=== PATIENT | male | born 1960 | race Caucasian/White ===

== ENCOUNTER 2017-04-19 19:10 | Inpatient (IN) | payer BC ==
[~2017-04-19] VITALS: Ht 175.3 cm; Wt 62.1 kg
[2017-04-19] MEDS ORDERED: DIPH,PERTUSS(ACELL),TET VAC/PF 0.5 ML IM-VACC ONE ×2 (20:00→20:36)
[2017-04-19] MEDS ORDERED: SODIUM CHLORIDE 0.9% 1,000ML IVBOLUS ONE (20:00)
[2017-04-19 20:09] LABS: HEMATOCRIT 40.8 % (39.2-51.8); HEMOGLOBIN 14.1 g/dL (13.7-18.0); WHITE BLOOD COUNT 15.8 x10^3/uL (3.4-10)
[2017-04-19 20:12] LABS: DAU SCREEN DISCLAIMER
[2017-04-19 20:21] LABS: BLOOD UREA NITROGEN 28 mg/dL (7-18)
[2017-04-19 20:23] LABS: ACETAMINOPHEN < 2 mcg/mL (10-30)
[2017-04-19] MEDS ORDERED: AMPICILLIN/SULBACTAM 3 GM in SODIUM CHLORIDE 0.9% 100 ML IVPB ONE (21:00)
[2017-04-19 21:07] LABS: DIFF TOTAL CELLS COUNTED 100 CELL DIFF
[2017-04-19 21:12] LABS: VERIFY COUNTS? YES
[2017-04-19] MEDS ORDERED: SODIUM CHLORIDE 0.9% 1,000 ML IV ONE (21:23)
[2017-04-19] MEDS ORDERED: ACETAMINOPHEN 325 MG TABLET PO PRN (21:30)
[2017-04-19] MEDS ORDERED: ONDANSETRON 2MG/ML, 2ML IVPush PRN ×2 (21:30)
[2017-04-19] MEDS ORDERED: POTASSIUM CHLORIDE 20 MEQ TAB.ER.PRT PO ONE (21:30)
[2017-04-19] MEDS: AMPICILLIN/SULBACTAM 3 GM in SODIUM CHLORIDE 0.9% 100 ML IV SCH (21:30)
[2017-04-19] MEDS ORDERED: TEMAZEPAM 15 MG CAPSULE PO PRN (21:30)
[2017-04-19] MEDS ORDERED: POTASSIUM CHLORIDE 20 MEQ TAB.ER.PRT ONE (21:42)
[2017-04-19] MEDS ORDERED: ENOXAPARIN 40 MG/0.4 ML ONE (21:42)
[2017-04-19] MEDS: ENOXAPARIN 40 MG/0.4 ML SQ SCH (21:50)
[2017-04-19] MEDS ORDERED: FLUO10CA13 PO (22:08)
[2017-04-19 22:37] VITALS: BP 140/90
[2017-04-19 22:44] VITALS: BP 140/90
[2017-04-20 00:55] VITALS: BP 143/93
[2017-04-20] MEDS: AMPICILLIN/SULBACTAM 3 GM in SODIUM CHLORIDE 0.9% 100 ML IV SCH ×4 (03:05→21:28)
[2017-04-20 05:22] LABS: HEMATOCRIT 37.3 % (39.2-51.8); HEMOGLOBIN 12.9 g/dL (13.7-18.0); WHITE BLOOD COUNT 15.1 x10^3/uL (3.4-10)
[2017-04-20 07:15] VITALS: BP 127/95
[2017-04-20] MEDS: SODIUM CHLORIDE FLUSH 10ML SYR IVF SCH ×2 (09:00→21:35)
[2017-04-20 14:05] VITALS: BP 125/79
[2017-04-20 19:43] VITALS: BP 129/82
[2017-04-20] MEDS: ENOXAPARIN 40 MG/0.4 ML SQ SCH (21:28)
[2017-04-21 01:18] VITALS: BP 120/76
[2017-04-21] MEDS: AMPICILLIN/SULBACTAM 3 GM in SODIUM CHLORIDE 0.9% 100 ML IV SCH ×3 (03:29→15:29)
[2017-04-21 05:44] LABS: HEMATOCRIT 34.6 % (39.2-51.8); WHITE BLOOD COUNT 12.6 x10^3/uL (3.4-10)
[2017-04-21 05:51] LABS: BLOOD UREA NITROGEN 18 mg/dL (7-18)
[2017-04-21 07:08] VITALS: BP 166/92
[2017-04-21] MEDS: SODIUM CHLORIDE FLUSH 10ML SYR IVF SCH ×2 (09:00→21:26)
[2017-04-21 13:25] VITALS: BP 152/95
[2017-04-21 19:12] VITALS: BP 146/92
[2017-04-21] MEDS: ENOXAPARIN 40 MG/0.4 ML SQ SCH (21:26)
[2017-04-21] MEDS ORDERED: VANCOMYCIN PER PHARMACY MC PRN (21:30)
[2017-04-21] MEDS ORDERED: PHARMACOKINETIC CONSULTATION MC ONE (22:00)
[2017-04-21] MEDS ORDERED: VANCOMYCIN 1,200 MG in SODIUM CHLORIDE 0.9% 250 ML IV SCH (22:00)
[2017-04-21] MEDS ORDERED: PHARMACOKINETIC MONITORING MC PRN (22:00)
[2017-04-21] MEDS: ERTAPENEM 1 GM in SODIUM CHLORIDE 0.9% 50 ML IV SCH (22:29)
[2017-04-22 01:18] VITALS: BP 152/85
[2017-04-22 05:55] LABS: BLOOD UREA NITROGEN 18 mg/dL (7-18)
[2017-04-22 05:58] LABS: HEMATOCRIT 36.5 % (39.2-51.8); HEMOGLOBIN 12.5 g/dL (13.7-18.0)
[2017-04-22 07:18] VITALS: BP 163/97
[2017-04-22] MEDS: SODIUM CHLORIDE FLUSH 10ML SYR IVF SCH ×2 (09:00→20:41)
[2017-04-22 09:19] VITALS: BP 145/86
[2017-04-22 13:24] VITALS: BP 137/87
[2017-04-22 19:57] VITALS: BP 138/92
[2017-04-22] MEDS: ERTAPENEM 1 GM in SODIUM CHLORIDE 0.9% 50 ML IV SCH (20:41)
[2017-04-22] MEDS: ENOXAPARIN 40 MG/0.4 ML SQ SCH (21:30)
[2017-04-23 02:43] VITALS: BP 131/86
[2017-04-23] MEDS ORDERED: MIDAZOLAM 1 MG/ML, 2ML ONE (06:48)
[2017-04-23] MEDS ORDERED: FENTANYL PF 100 MCG/2ML ONE ×2 (06:48→08:10)
[2017-04-23] MEDS ORDERED: PROPOFOL 10 MG/ML, 20ML ONE (07:10)
[2017-04-23] MEDS ORDERED: DEXAMETHASONE 4 MG/ML, 1ML ONE ×2 (07:10)
[2017-04-23] MEDS ORDERED: SUCCINYLCHOLINE 20 MG/ML, 10ML ONE (07:10)
[2017-04-23] MEDS ORDERED: ONDANSETRON 2MG/ML, 2ML ONE ×2 (07:10)
[2017-04-23] MEDS ORDERED: LABETALOL 5MG/ML, 20ML IV PRN (07:30)
[2017-04-23] MEDS ORDERED: HYDROmorphone 1 MG/ML, 1ML IV PRN (07:30)
[2017-04-23] MEDS ORDERED: MIDAZOLAM 1 MG/ML, 2ML IV PRN (07:30)
[2017-04-23] MEDS ORDERED: ONDANSETRON 2MG/ML, 2ML IVPush PRN (07:30)
[2017-04-23] MEDS ORDERED: ACETAMINOPHEN 325 MG TABLET PO PRN (07:30)
[2017-04-23] MEDS ORDERED: PROMETHAZINE 25 MG/ML, 1ML IV PRN (07:30)
[2017-04-23] MEDS ORDERED: hydrALAzine 20 MG/ML, 1ML IV PRN (07:30)
[2017-04-23] MEDS ORDERED: MEPERIDINE/PF 25MG/0.5ML IVPush PRN (07:30)
[2017-04-23] MEDS ORDERED: ALBUTEROL SULFATE 2.5 MG/3 ML NPPB PRN (07:30)
[2017-04-23] MEDS ORDERED: ACETAMINOPHEN 650 MG/20.3 ML UDC ONE (08:06)
[2017-04-23] MEDS ORDERED: ACETAMINOPHEN 325 MG TABLET ONE (08:07)
[2017-04-23] MEDS ORDERED: OXYcodone 5 MG/5 ML ORAL.SOL UDC ONE ×2 (08:07→08:22)
[2017-04-23] MEDS: OXYcodone 5 MG/5 ML ORAL.SOL UDC PO PRN ×2 (08:10→08:25)
[2017-04-23] MEDS: FENTANYL PF 100 MCG/2ML IV PRN ×2 (08:10→08:20)
[2017-04-23 08:58] VITALS: BP 147/96
[2017-04-23] MEDS: BUPROPION SR 150 MG TABLET PO SCH (10:37)
[2017-04-23] MEDS: SODIUM CHLORIDE FLUSH 10ML SYR IVF SCH ×2 (10:38→19:57)
[2017-04-23 12:10] VITALS: BP 136/84
[2017-04-23 19:52] VITALS: BP 131/89
[2017-04-23] MEDS: ERTAPENEM 1 GM in SODIUM CHLORIDE 0.9% 50 ML IV SCH (19:57)
[2017-04-23] MEDS: ENOXAPARIN 40 MG/0.4 ML SQ SCH (19:57)
[2017-04-24 01:47] VITALS: BP 148/95
[2017-04-24] MEDS ORDERED: FLU VACC QS2017-18 (36MOS+) UP/PF 0.5 ML IM-VACC ONE (06:30)
[2017-04-24 07:22] VITALS: BP 145/96
[2017-04-24] MEDS: BUPROPION SR 150 MG TABLET PO SCH (09:43)
[2017-04-24] MEDS: SODIUM CHLORIDE FLUSH 10ML SYR IVF SCH ×2 (09:44→22:28)
[2017-04-24 14:30] VITALS: BP 126/81
[2017-04-24 20:14] VITALS: BP 131/81
[2017-04-24] MEDS: ERTAPENEM 1 GM in SODIUM CHLORIDE 0.9% 50 ML IV SCH (22:28)
[2017-04-24] MEDS: ENOXAPARIN 40 MG/0.4 ML SQ SCH (22:28)
[2017-04-25 02:49] VITALS: BP 139/87
[2017-04-25] MEDS ORDERED: BUPR150T73 PO (05:45)
[2017-04-25] MEDS ORDERED: OXYC5TAB3 PO (05:45)
[2017-04-25] MEDS ORDERED: CLIN300C8 PO (05:45)
[2017-04-25 08:04] LABS: HEMATOCRIT 38.6 % (39.2-51.8); WHITE BLOOD COUNT 11.4 x10^3/uL (3.4-10)
[2017-04-25] MEDS ORDERED: CLINDAMYCIN 300 MG CAPSULE PO SCH (09:00)
[2017-04-25] MEDS: BUPROPION SR 150 MG TABLET PO SCH (09:59)
[2017-04-25] MEDS: SODIUM CHLORIDE FLUSH 10ML SYR IVF SCH (09:59)
[2017-04-25 10:07] VITALS: BP 114/82
== END 2017-04-25 13:45 | disposition home or self-care (01) | DRG 570 ==
LOC: SUATTDRO 21:23 → ED 21:35 → EDIP 21:52 → 3NE 22:31
PROVIDERS: ADMIT Internal Medicine; ATTEND Hospitalist
PROC: 0JBH0ZZ Excision of Left Lower Arm Subcutaneous Tissue and Fascia, Open Approach (ICD-10-PCS; principal; 2017-04-23 07:00)
DX: L03.114 Cellulitis of left upper limb (principal); E43 Unspecified severe protein-calorie malnutrition; D64.9 Anemia, unspecified; F17.210 Nicotine dependence, cigarettes, uncomplicated; J44.9 Chronic obstructive pulmonary disease, unspecified; S51.802A Unspecified open wound of left forearm, initial encounter; L02.414 Cutaneous abscess of left upper limb; Z68.20 Body mass index [BMI] 20.0-20.9, adult; S61.519A Laceration without foreign body of unspecified wrist, initial encounter; W26.0XXA Contact with knife, initial encounter; X78.9XXA Intentional self-harm by unspecified sharp object, initial encounter; Z71.6 Tobacco abuse counseling
CPT/HCPCS: 36415; 80048; 80307; 80329; 82040; 82565; 83605; 83735; 84145; 84520; 85025; 87040; 87070; 87075; 87077; 87147; 87186; 87205; 90471; 90686; 90715; 96361; 96365; J0295; J1100; J1335; J1650; J2250; J2405; J2704; J3010; J3370; G0479; G0480; J0330; J7030; J7050